=== PATIENT | female | born 1970 | race American Indian/Alaskan Native ===

== ENCOUNTER 2018-03-23 05:59 | Outpatient (CLI) | payer BC ==
[2018-03-23 09:52] LABS: Basophils % (Auto) 0.5 % (0.0-1.8); Eosinophils # (Auto) 0.1 K/mm3 (0.0-0.4); Eosinophils % (Auto) 1.2 % (0.0-4.3); Hematocrit 29.8 % (30.3-42.9); Hemoglobin 9.3 gm/dl (10.1-14.3); Lymphocytes # (Auto) 1.4 K/mm3 (1.2-5.4); Lymphocytes % (Auto) 29.9 % (13.4-35.0); Mean Corpuscular HGB Conc 31 % (30-34); Mean Corpuscular Hemoglobin 22 pg (28-32); Mean Corpuscular Volume 70 fl (79-97); Monocytes # (Auto) 0.5 K/mm3 (0.0-0.8); Monocytes % (Auto) 11.4 % (0.0-7.3); Platelet Count 305 K/mm3 (140-440); Red Blood Count 4.25 M/mm3 (3.65-5.03); Red Cell Distribution Width 18.5 % (13.2-15.2)
[2018-03-23 10:19] LABS: Alanine Aminotransferase 24 units/L (7-56); Albumin 3.4 g/dL (3.9-5); BUN/Creatinine Ratio 60; Blood Urea Nitrogen 24 mg/dL (7-17); Calcium 10.5 mg/dL (8.4-10.2); Chol/HDL Ratio 2.52 %; HDL Cholesterol 42 mg/dL (40-59); Hemolysis Index 0; LDL Cholesterol,Direct 53 mg/dL (50-130)
[2018-03-23 10:25] LABS: Free T4 (Free Thyroxine) 7.74 ng/dL (0.76-1.46)
--- NOTE | 2018-03-24 18:05 | Vascular Lab Report ---
LOWER EXTREMITY VENOUS DUPLEX: REASON FOR EXAM: Short of breath. COMMENTS ON THE RIGHT: All veins visualized are freely compressible without evidence of internal echogenicity. Flow is spontaneous and phasic throughout. COMMENTS ON THE LEFT: All veins visualized are freely compressible without evidence of internal echogenicity. Flow is spontaneous and phasic throughout. IMPRESSION: No evidence of acute or chronic deep venous thrombosis in either lower extremity.
== END 2018-03-23 06:00 | disposition home or self-care (01) ==
LOC: ECHO 05:59
PROVIDERS: ATTEND Internal Medicine
DX: I07.1 Rheumatic tricuspid insufficiency (principal); R06.02 Shortness of breath; R79.89 Other specified abnormal findings of blood chemistry; R94.6 Abnormal results of thyroid function studies
CPT/HCPCS: 36415; 80053; 80061; 82306; 83036; 84439; 84443; 85025; 93306; 93970

== ENCOUNTER 2018-04-30 08:23 | Outpatient (CLI) | payer BC ==
--- NOTE | 2018-04-30 12:15 | Cat Scan Report ---
CT PELVIS WITH CONTRAST INDICATION: Lymphedema. COMPARISON: None similar. FINDINGS: Pelvis CT performed following oral contrast and intravenous administration of 100 cc of Omnipaque 300 and demonstrates a heterogeneous, lobulated non-calcified myomatous uterus measuring approximately 12.3 x 8.4 cm on axial series 2, image 20 and approximately 11 cm craniocaudal. One of the larger fibroids posteriorly is approximately 5 cm as on axial image 26. Nonspecific cystic appearance to the right adnexa, possibly multiple smaller adjacent cysts or septated with the largest component approximately 4.1 x 2.6 on axial image 14, series 2. Left ovary not clearly visible. Urinary bladder and the rectosigmoid position around the enlarged uterus; otherwise unremarkable. No evidence of bowel obstruction. No pelvic free fluid or significant adenopathy. Patent imaged veins. Unremarkable bones. CONCLUSION: Enlarged, myomatous uterus with cystic right adnexal appearance noted, as described. Please correlate. Thank you for the opportunity to participate in this patient's care.
== END 2018-04-30 08:24 | disposition home or self-care (01) ==
LOC: CT 08:23
PROVIDERS: ATTEND Surgery Vascular Surgery
DX: D25.9 Leiomyoma of uterus, unspecified (principal); N85.2 Hypertrophy of uterus; I89.0 Lymphedema, not elsewhere classified
CPT/HCPCS: 72193; Q9967

== ENCOUNTER 2019-05-26 08:01 | Outpatient (CLI) | payer BC ==
--- NOTE | 2019-05-26 11:39 | Mammography Report ---
DIGITAL SCREENING MAMMOGRAM WITH CAD, 05/26/2019 INDICATION: Routine screening mammography. TECHNIQUE: Digital bilateral 2D mammography was obtained in the craniocaudal and mediolateral obliq ue projections. This examination was interpreted with the benefit of Computer-Aided Detection analysi s. COMPARISON: None available at the time of this dictation. Patient states prior mammograms were perfor med in [place]. FINDINGS: Breast Density: The breasts are heterogeneously dense, which may obscure small masses. There is focal asymmetry in the lateral left breast seen on the cc view. Additionally there is nodula r density projecting in the lateral right breast on cc view. We will try to obtain prior [id number] mammograms for comparison as these findings may be normal and/or unchanged. If prior mammograms are not available, patient will need to return for bilateral spot compression views and possible bilatera l ultrasound. Please give adequate time to obtain prior outside mammograms before returning for diagnostic mammogra m and/or ultrasound.. IMPRESSION: Bilateral focal asymmetries, as described above. We will attempt to obtain prior out of s [facility] mammogram for comparison. If prior mammograms are not available for comparison, the patient will need to return for bilateral spot compression views and possible bilateral breast ultrasound. BI-RADS Category 0: Incomplete. Needs additional imaging evaluation and/or prior mammograms for larry rison. A "normal" or negative report should not discourage follow up or biopsy of a clinically significant f inding. A written summary of these findings will be mailed to the patient. The patient will be entered into a mammography reporting system which will generate a reminder letter for the patient's next appointmen t at the appropriate interval. The [employer] recommends yearly mammograms starting at age 40 and continuing as l annemarie as a woman is in good health. Breast MRI is recommended for women with an approximate 20-25% or greater lifetime risk of breast cancer, including women with a strong family history of breast or ova dutch cancer or who have been treated for Hodgkin's disease. Signer Name: Joy Allen MD Signed: 05/26/2019 11:35 AM Workstation Name: [id number]
--- NOTE | 2019-05-26 14:19 | Ultrasound Report ---
Thyroid ultrasound. History: E04.9, GOITER/R00.0 TACHYCARDIA Comparison: None Procedure: Real time ultrasound was utilized to evaluate the thyroid gland. Findings: The thyroid gland is diffusely enlarged and markedly heterogeneous in echotexture. The righ t thyroid lobe measures 7.7 x 2.7 x 3.5 cm and the left thyroid lobe measures 8.2 x 2.7 x 3.7cm. Within the right mid and lower lobe, there is a very complex oval mass measuring 5.3 x 2.9 x 3.4 cm. The mass is mostly solid but there is a small cystic component. There is increased peripheral vascula rity associated with this mass. There are 2 complex masses within the left lobe. There is a 3.1 x 2.1 x 2.5 cm complex round mass con taining both solid and cystic components in the midportion of the left lobe. There is a smaller simil ar mass seen in the mid to upper left lobe measuring 1.7 x 1.3 x 1.9 cm. There are other smaller nodules scattered throughout the entire gland. There is increased vascularity throughout the thyroid ring,. Impression: Diffusely enlarged thyroid gland with multiple bilateral nodules. The overall appearance is most suggestive of a multinodular goiter. However, I would recommend obtaining histology for the 5 .3 cm mass within the right lobe to exclude the possibility of thyroid malignancy. Signer Name: Joy Allen MD Signed: 05/26/2019 2:14 PM Workstation Name: [id number]
== END 2019-05-26 08:02 | disposition home or self-care (01) ==
LOC: MAMMO 08:01
PROVIDERS: ATTEND Nurse Practitioner Family
DX: Z12.31 Encounter for screening mammogram for malignant neoplasm of breast (principal); E04.2 Nontoxic multinodular goiter
CPT/HCPCS: 76536; 77067